=== PATIENT | female | born 1985 | race Hispanic/Latino ===

== ENCOUNTER 2020-12-06 12:06 | Outpatient (CLI) | payer OTHER ==
[~2020-12-06] VITALS: Ht 154.9 cm; Wt 60.9 kg
[~2020-12-06 12:06] MED LIST: ASPI81TA83 OR; ONDA-1 OR; PERC5TAB8 PO; PRENATAL VITAMIN PO; PROG-34 PO; methergine PO
[2020-12-06 12:30] VITALS: BP 121/59
[2020-12-06] MEDS ORDERED: ACETAMINOPHEN 500 MG TAB PO ONE (12:30)
[2020-12-06] MEDS ORDERED: IRON SUCROSE 200 MG in NS 100 ML OVER 1 HR IV ONE (12:30)
[2020-12-06 13:15] VITALS: BP 98/54
[2020-12-06 14:15] VITALS: BP 111/56
[2020-12-06 14:55] VITALS: BP 112/55
[2020-12-06 15:30] VITALS: BP 118/65
== END 2020-12-06 15:30 | disposition home or self-care (01) ==
LOC: M INFU 12:06
PROVIDERS: ATTEND Student in an Organized Health Care Education/Training Program
DX: D50.8 Other iron deficiency anemias (principal); Z88.0 Allergy status to penicillin; Z88.8 Allergy status to other drugs, medicaments and biological substances; Z91.040 Latex allergy status
CPT/HCPCS: 96365; J1756

== ENCOUNTER 2020-12-13 10:27 | Outpatient (CLI) | payer OTHER ==
[~2020-12-13] VITALS: Ht 154.9 cm; Wt 60.9 kg
[~2020-12-13 10:27] MED LIST changes: +ACETAMINOPHEN 500 MG TAB PO ONE; +IRON SUCROSE 200 MG in NS 100 ML OVER 1 HR IV ONE
[2020-12-13 10:30] VITALS: BP 124/58
[2020-12-13] MEDS ORDERED: CENTCHW4 PO (10:40)
[2020-12-13 12:30] VITALS: BP 112/76
== END 2020-12-13 12:30 | disposition home or self-care (01) ==
LOC: M INFU 10:27
PROVIDERS: ATTEND Student in an Organized Health Care Education/Training Program
DX: D50.8 Other iron deficiency anemias (principal); Z88.0 Allergy status to penicillin; Z91.040 Latex allergy status
CPT/HCPCS: 96365; J1756

== ENCOUNTER 2020-12-27 10:19 | Outpatient (CLI) | payer OTHER ==
[~2020-12-27] VITALS: Ht 154.9 cm; Wt 60.9 kg
[~2020-12-27 10:19] MED LIST changes: -ACETAMINOPHEN 500 MG TAB PO ONE; +CENTCHW4 PO; -IRON SUCROSE 200 MG in NS 100 ML OVER 1 HR IV ONE
[2020-12-27] MEDS ORDERED: ACETAMINOPHEN 500 MG TAB PO ONE (11:00)
[2020-12-27] MEDS ORDERED: IRON SUCROSE 200 MG in NS 250 ML IV ONE (11:00)
[2020-12-27 11:05] VITALS: BP 104/58
[2020-12-27 11:20] VITALS: BP 112/63
[2020-12-27 12:15] VITALS: BP 103/55
[2020-12-27 13:00] VITALS: BP 110/66
== END 2020-12-27 13:00 | disposition home or self-care (01) ==
LOC: M INFU 10:19
PROVIDERS: ATTEND Student in an Organized Health Care Education/Training Program
DX: D50.8 Other iron deficiency anemias (principal); Z88.0 Allergy status to penicillin; Z88.8 Allergy status to other drugs, medicaments and biological substances; Z91.040 Latex allergy status
CPT/HCPCS: 96365; 96366; J1756

== ENCOUNTER → 2020-12-28 | Outpatient (REF) | payer OTHER | LOC: M WUC 09:54 | PROVIDERS: ATTEND Physician Assistant | DX: N39.0 Urinary tract infection, site not specified (principal) ==

== ENCOUNTER → 2021-04-23 | Outpatient (CLI) | payer OTHER ==
[2021-04-23 14:00] LABS: BASO % 0.2 % (0.0-1.0); HEMATOCRIT 38.1 % (36.0-47.0); LYMPH # 0.9 10^3/uL (1.5-5.0); LYMPH % 23.2 % (24.0-44.0); MEAN CORPUSCULAR HEMOGLOBIN 27.8 pg (27.0-33.0); MEAN CORPUSCULAR HGB CONC 31.5 g/dl (32.0-36.5); MEAN CORPUSCULAR VOLUME 88.4 fl (80.0-96.0); MONO # 0.3 10^3/uL (0.0-0.8); MONO % 7.1 % (2.0-8.0); NEUTROPHILS # 2.8 10^3/uL (1.5-8.5); NEUTROPHILS % 68.3 % (36.0-66.0); PLATELET COUNT, AUTOMATED 362 10^3/uL (150-450); RED BLOOD COUNT 4.31 10^6/uL (4.00-5.40); WHITE BLOOD COUNT 4.1 10^3/uL (4.0-10.0)
[2021-04-23 14:29] LABS: ALBUMIN 4.2 GM/DL (3.2-5.2); ALT/SGPT 16 U/L (12-78); BILIRUBIN,TOTAL 0.4 MG/DL (0.2-1.0); BLOOD UREA NITROGEN 20 MG/DL (7-18); CALCIUM LEVEL 8.8 MG/DL (8.5-10.1); CARBON DIOXIDE LEVEL 28 MEQ/L (21-32); CHLORIDE LEVEL 105 MEQ/L (98-107); CREATININE FOR GFR 0.69 MG/DL (0.55-1.30); GLOMERULAR FILTRATION RATE > 60.0 (>60); GLUCOSE, FASTING 81 MG/DL (70-100); POTASSIUM SERUM 4.2 MEQ/L (3.5-5.1); SODIUM LEVEL 138 MEQ/L (136-145); TOTAL PROTEIN 7.4 GM/DL (6.4-8.2)
[2021-04-23 14:30] LABS: MAGNESIUM LEVEL 2.5 MG/DL (1.8-2.4)
== END ==
LOC: M WUC 11:04
PROVIDERS: ATTEND Physician Assistant
DX: R55 Syncope and collapse (principal)

== ENCOUNTER → 2021-05-04 | Outpatient (REF) | payer OTHER | LOC: M LAB REF 17:29 | PROVIDERS: ATTEND Physician Assistant | DX: N39.0 Urinary tract infection, site not specified (principal) ==

== ENCOUNTER → 2021-06-23 | Outpatient (REF) | payer OTHER | LOC: M LAB REF 11:18 | PROVIDERS: ATTEND Physician Assistant | DX: N39.0 Urinary tract infection, site not specified (principal) ==

== ENCOUNTER 2021-07-29 08:23 | Outpatient (CLI) | payer OTHER ==
[~2021-07-29] VITALS: Ht 154.9 cm; Wt 60.9 kg
[~2021-07-29 08:23] MED LIST changes: +ACETAMINOPHEN 500 MG TAB PO ONE; +IRON SUCROSE 200 MG in NS 200 ML IV ONE
[2021-07-29 08:44] VITALS: BP 110/59
[2021-07-29] MEDS ORDERED: ACETAMINOPHEN 500 MG TAB PO ONE (09:10)
[2021-07-29 10:00] VITALS: BP 107/53
[2021-07-29 10:50] VITALS: BP 107/56
== END 2021-07-29 13:58 | disposition home or self-care (01) ==
LOC: M INFU 08:23
PROVIDERS: ATTEND Student in an Organized Health Care Education/Training Program
DX: D50.8 Other iron deficiency anemias (principal); Z88.0 Allergy status to penicillin; Z91.040 Latex allergy status
CPT/HCPCS: 96365; 96366; J1756

== ENCOUNTER 2021-08-12 07:41 | Outpatient (CLI) | payer OTHER ==
[~2021-08-12] VITALS: Ht 154.9 cm; Wt 60.9 kg
[~2021-08-12 07:41] MED LIST changes: +IRON SUCROSE 200 MG in NS 100 ML OVER 1 HR IV ONE; -IRON SUCROSE 200 MG in NS 200 ML IV ONE
[2021-08-12 08:06] VITALS: BP 111/70
[2021-08-12 09:35] VITALS: BP 125/60
== END 2021-08-12 09:35 | disposition home or self-care (01) ==
LOC: M INFU 07:41
PROVIDERS: ATTEND Student in an Organized Health Care Education/Training Program
DX: D50.8 Other iron deficiency anemias (principal); Z88.0 Allergy status to penicillin; Z91.040 Latex allergy status
CPT/HCPCS: 96365; J1756

== ENCOUNTER 2021-08-19 07:34 | Outpatient (CLI) | payer OTHER ==
[~2021-08-19] VITALS: Ht 154.9 cm; Wt 60.9 kg
[~2021-08-19 07:34] MED LIST changes: -IRON SUCROSE 200 MG in NS 100 ML OVER 1 HR IV ONE; +IRON SUCROSE 200 MG in NS 100 ML OVER 1HR IV ONE
[2021-08-19 07:47] VITALS: BP 114/55
[2021-08-19 09:12] VITALS: BP 106/57
== END 2021-08-19 09:15 | disposition home or self-care (01) ==
LOC: M INFU 07:34
PROVIDERS: ATTEND Student in an Organized Health Care Education/Training Program
DX: D50.8 Other iron deficiency anemias (principal); Z88.0 Allergy status to penicillin; Z91.040 Latex allergy status
CPT/HCPCS: 96365; J1756

== ENCOUNTER 2021-12-25 10:11 | Outpatient (CLI) | payer OTHER ==
[~2021-12-25] VITALS: Ht 154.9 cm; Wt 61.0 kg
[2021-12-25 10:36] VITALS: BP 101/51
[2021-12-25 12:08] VITALS: BP 98/78
== END 2021-12-25 12:05 | disposition home or self-care (01) ==
LOC: M INFU 10:11
PROVIDERS: ATTEND Student in an Organized Health Care Education/Training Program
DX: D50.8 Other iron deficiency anemias (principal); Z88.0 Allergy status to penicillin; Z88.8 Allergy status to other drugs, medicaments and biological substances; Z91.040 Latex allergy status
CPT/HCPCS: 96365; J1756

== ENCOUNTER 2022-01-01 10:31 | Outpatient (CLI) | payer OTHER ==
[~2022-01-01] VITALS: Ht 154.9 cm; Wt 61.0 kg
[~2022-01-01 10:31] MED LIST changes: +IRON SUCROSE 200 MG in NS 100 ML OVER 1 HR IV ONE; -IRON SUCROSE 200 MG in NS 100 ML OVER 1HR IV ONE
[2022-01-01 10:57] VITALS: BP 112/56
[2022-01-01 12:00] VITALS: BP 123/57
== END 2022-01-01 12:00 | disposition home or self-care (01) ==
LOC: M INFU 10:31
PROVIDERS: ATTEND Student in an Organized Health Care Education/Training Program
DX: D50.8 Other iron deficiency anemias (principal); Z88.0 Allergy status to penicillin; Z91.040 Latex allergy status; Z88.8 Allergy status to other drugs, medicaments and biological substances
CPT/HCPCS: 96365; J1756

== ENCOUNTER → 2022-05-05 | Outpatient (CLI) | payer OTHER ==
[~2022-05-05] MED LIST changes: -ACETAMINOPHEN 500 MG TAB PO ONE; -IRON SUCROSE 200 MG in NS 100 ML OVER 1 HR IV ONE
== END ==
LOC: M WHC 09:40
PROVIDERS: ATTEND Student in an Organized Health Care Education/Training Program
DX: N64.4 Mastodynia (principal)
CPT/HCPCS: 76641; 77066; G0279

== ENCOUNTER → 2022-06-03 | Outpatient (REF) | payer OTHER | LOC: M WUC 19:38 | PROVIDERS: ATTEND Physician Assistant | DX: R30.0 Dysuria (principal) ==

== ENCOUNTER → 2022-07-01 | Outpatient (REF) | payer OTHER | LOC: M WUC 16:17 | PROVIDERS: ATTEND Physician Assistant | DX: R30.0 Dysuria (principal) ==

== ENCOUNTER → 2022-08-01 | Outpatient (REF) | payer OTHER | LOC: M WUC 19:44 | PROVIDERS: ATTEND Physician Assistant | DX: R30.0 Dysuria (principal) ==

== ENCOUNTER → 2022-09-15 | Outpatient (REF) | payer OTHER | LOC: M WUC 09:55 | PROVIDERS: ATTEND Physician Assistant | DX: R30.0 Dysuria (principal) ==